=== PATIENT | male | born 1955 | race African-American/Black ===

== ENCOUNTER 2020-10-19 14:40 | Emergency (ER) | payer MEDICAID ==
[~2020-10-19] VITALS: Ht 167.6 cm; Wt 60.2 kg
[2020-10-19] MEDS ORDERED: IBUPROFEN 400MG TABLET PO ONE (14:45)
[2020-10-19 15:02] VITALS: BP 196/108
== END 2020-10-19 16:49 | disposition home or self-care (01) ==
LOC: ER 14:40
DX: S76.012A Strain of muscle, fascia and tendon of left hip, initial encounter (principal); M54.5 Low back pain; F12.10 Cannabis abuse, uncomplicated; V03.00XA Pedestrian on foot injured in collision with car, pick-up truck or van in nontraffic accident, initial encounter; Y93.89 Activity, other specified; Y92.488 Other paved roadways as the place of occurrence of the external cause
CPT/HCPCS: 71045; 72170; 99284

== ENCOUNTER 2021-05-03 09:17 | Emergency (ER) | payer MEDICAID, MEDICARE ==
[~2021-05-03] VITALS: Ht 172.7 cm; Wt 77.0 kg
[2021-05-03 09:19] VITALS: BP 173/95
[2021-05-03] MEDS ORDERED: TETANUS AND DIPHTHERIA TOX/PF 0.5ML SYR (ADULT) IM ONE (10:15)
[2021-05-03] MEDS ORDERED: TETANUS, DIPHTHERIA, PERTUSSIS VAC/PF 0.5ML (>7YR OLD) IM ONE (10:30)
[2021-05-03] MEDS ORDERED: ACETAMINOPHEN 325MG TABLET PO ONE (11:30)
== END 2021-05-03 12:03 | disposition home or self-care (01) ==
LOC: ER 09:17
DX: S01.01XA Laceration without foreign body of scalp, initial encounter (principal); F12.10 Cannabis abuse, uncomplicated; F17.210 Nicotine dependence, cigarettes, uncomplicated; W07.XXXA Fall from chair, initial encounter; Y93.89 Activity, other specified; Y92.89 Other specified places as the place of occurrence of the external cause
CPT/HCPCS: 70450; 90715; 99284; Z7610; 90714